=== PATIENT | female | born 1945 | race Caucasian/White ===

== ENCOUNTER → 2021-10-30 | Outpatient (CLI) | payer OTHER | LOC: KOH-I 10-29 13:00 | DX: M51.16 Intervertebral disc disorders with radiculopathy, lumbar region (principal); M48.061 Spinal stenosis, lumbar region without neurogenic claudication; M48.07 Spinal stenosis, lumbosacral region | CPT/HCPCS: 72148 ==

== ENCOUNTER → 2022-03-29 | Outpatient (CLI) | payer OTHER | LOC: KOH-I 12:56 | DX: M79.672 Pain in left foot (principal); M79.671 Pain in right foot; M20.12 Hallux valgus (acquired), left foot; M20.11 Hallux valgus (acquired), right foot | CPT/HCPCS: 73630 ==